=== PATIENT | female | born 1960 | race Caucasian/White ===

== ENCOUNTER 2017-12-15 19:23 | Emergency (ER) | payer OTHER ==
[~2017-12-15] VITALS: Ht 170.2 cm; Wt 125.0 kg
[~2017-12-15 19:23] MED LIST: ASPIRIN EC325 MG PO; ASPIRIN81 M2 PO; ATIVAN1 MG PO; DAILY MULTIPLE1 EACH PO; DILAUDID2 MG PO; FLONASE16 G1 BOTH NARES; KEFLEX500 MG PO; LASIX; MACROBID100 MG PO; MUCUS ER600 MG PO; PERCOCET 5/31 TABLET PO; PREDNISONE20 MG PO; PRILOSEC OTC20 MG PO; PROVENTIL,2.5 MG/3 M IH; TESSALON PERLE100 MG PO; TRAMADOL HCL50 MG PO; ULTRACET1 TABLET PO; ZANTAC150 MG PO; ZANTAC75 M1 PO; ZITHROMAX Z-PA250 MG PO; ZOFRAN ODT4 MG PO
[2017-12-15] MEDS ORDERED: VENTOLIN HFA18 GM IH (22:12)
[2017-12-15] MEDS ORDERED: PREDNISONE50 MG PO (22:12)
[2017-12-15 22:19] VITALS: BP 152/91
== END 2017-12-15 22:21 | disposition home or self-care (01) ==
LOC: EME 19:23
DX: J45.901 Unspecified asthma with (acute) exacerbation (principal); K21.9 Gastro-esophageal reflux disease without esophagitis; M79.7 Fibromyalgia; Z85.528 Personal history of other malignant neoplasm of kidney; Z88.2 Allergy status to sulfonamides; Z88.6 Allergy status to analgesic agent; Z88.0 Allergy status to penicillin; Z91.041 Radiographic dye allergy status
CPT/HCPCS: 94640; 99281; 99284; J7512

== ENCOUNTER 2018-02-03 23:29 | Emergency (ER) | payer OTHER ==
[~2018-02-03] VITALS: Ht 170.2 cm; Wt 127.1 kg
[~2018-02-03 23:29] MED LIST changes: +PREDNISONE50 MG PO; +VENTOLIN HFA18 GM IH
[2018-02-04 00:22] LABS: HEMATOCRIT 42.7 % (36.0-46.0); MCH 30.7 PG (29.0-34.0); MCHC 32.8 G/DL (30.0-36.0); MCV 93.6 FL (83-99); PLATELET COUNT 240 K/uL (156-360); RBC DIS.WIDTH-CV 13.2 % (11.8-14.6); RBC DIS.WIDTH-SD 45.2 % (39-53); RED BLOOD COUNT 4.56 M/uL (3.80-5.20); WHITE BLOOD COUNT 11.1 K/uL (4.1-10.2)
[2018-02-04 00:31] LABS: APPEARANCE SL.HAZY ((CLEAR)); BILIRUBIN NEGATIVE; BLOOD MODERATE; COLOR YELLOW ((YELLOW)); GLUCOSE (STRIP) NEGATIVE; KETONES NEGATIVE; LEUKOCYTES LARGE; NITRITE NEGATIVE; PROTEIN (STRIP) NEGATIVE; SPECIFIC GRAVITY 1.017 (1.000-1.030); UROBILINOGEN 0.2 MG/DL (0.2-1.0)
[2018-02-04 00:34] LABS: ALBUMIN 4.5 g/dL (3.2-4.8); CHLORIDE 109 mEq/L (99-109); POTASSIUM 4.7 mEq/L (3.7-5.4); SODIUM 143 mEq/L (136-147)
[2018-02-04 00:37] LABS: GLUCOSE 100 mg/dL (70-99); TOTAL PROTEIN 7.8 g/dL (6.4-8.3)
[2018-02-04 00:54] LABS: BACTERIA RARE /HPF; EPITHELIAL CELLS RARE /HPF; MUCUS TRACE /LPF; RED BLOOD CELLS 40-50 /HPF (0-5); UCUL ADDED? YES; WHITE BLOOD CELLS TNTC /HPF (0-5)
[2018-02-04 01:08] LABS: TOTAL BILIRUBIN 0.3 mg/dL (0.0-1.0)
[2018-02-04 01:09] LABS: ALKALINE PHOSPHATASE 95 IU/L (3-129)
[2018-02-04 01:10] LABS: CREATININE 0.8 mg/dL (0.6-1.3); GFR ESTIMATE (CALCULATED) > 59 mL/min/
[2018-02-04 01:11] LABS: UREA NITROGEN (BUN) 17 mg/dL (9-23)
[2018-02-04 01:12] LABS: AST (GOT) 14 IU/L (2-34)
[2018-02-04 01:13] LABS: ALT (GPT) 19 IU/L (3-49)
[2018-02-04] MEDS ORDERED: DILAUDID2 MG PO (02:17)
[2018-02-04] MEDS ORDERED: ZOFRAN4 MG PO (02:17)
[2018-02-04 02:50] VITALS: BP 168/82
== END 2018-02-04 02:51 | disposition home or self-care (01) ==
LOC: EME 23:29
DX: N13.2 Hydronephrosis with renal and ureteral calculous obstruction (principal); Z90.49 Acquired absence of other specified parts of digestive tract; Z88.0 Allergy status to penicillin; Z88.1 Allergy status to other antibiotic agents; Z88.2 Allergy status to sulfonamides; Z87.442 Personal history of urinary calculi; Z85.528 Personal history of other malignant neoplasm of kidney
CPT/HCPCS: 74176; 80053; 81003; 85027; 87077; 87086; 87186; 99281; 99284

== ENCOUNTER 2018-02-15 13:34 | Emergency (ER) | payer OTHER ==
[~2018-02-15] VITALS: Ht 170.2 cm; Wt 127.0 kg
[~2018-02-15 13:34] MED LIST changes: +ZOFRAN4 MG PO
[2018-02-15 14:48] LABS: HEMATOCRIT 39.2 % (36.0-46.0); HEMOGLOBIN 13.1 G/DL (11.9-15.5); MCH 30.8 PG (29.0-34.0); MCHC 33.4 G/DL (30.0-36.0); PLATELET COUNT 224 K/uL (156-360); RBC DIS.WIDTH-CV 13.1 % (11.8-14.6); RBC DIS.WIDTH-SD 44.2 % (39-53); RED BLOOD COUNT 4.26 M/uL (3.80-5.20); WHITE BLOOD COUNT 21.6 K/uL (4.1-10.2)
[2018-02-15 15:00] LABS: CHLORIDE 106 mEq/L (99-109); POTASSIUM 3.5 mEq/L (3.7-5.4); SODIUM 139 mEq/L (136-147)
[2018-02-15 15:02] LABS: GLUCOSE 114 mg/dL (70-99); TOTAL PROTEIN 7.2 g/dL (6.4-8.3)
[2018-02-15 15:04] LABS: TOTAL BILIRUBIN 1.1 mg/dL (0.0-1.0)
[2018-02-15 15:05] LABS: ALKALINE PHOSPHATASE 88 IU/L (3-129); CREATININE 1.4 mg/dL (0.6-1.3); GFR ESTIMATE (CALCULATED) 41 mL/min/
[2018-02-15 15:07] LABS: AST (GOT) 15 IU/L (2-34); UREA NITROGEN (BUN) 16 mg/dL (9-23)
[2018-02-15 15:08] LABS: ALT (GPT) 18 IU/L (3-49)
[2018-02-15 15:17] LABS: APPEARANCE SL.HAZY ((CLEAR)); BILIRUBIN NEGATIVE; BLOOD MODERATE; COLOR YELLOW ((YELLOW)); GLUCOSE (STRIP) NEGATIVE; KETONES 5; LEUKOCYTES LARGE; NITRITE NEGATIVE; PROTEIN (STRIP) NEGATIVE; SPECIFIC GRAVITY 1.012 (1.000-1.030); UROBILINOGEN 0.2 MG/DL (0.2-1.0)
[2018-02-15 15:21] LABS: BACTERIA RARE /HPF; EPITHELIAL CELLS 2+ /HPF; MUCUS TRACE /LPF; UCUL ADDED? YES; WHITE BLOOD CELLS TNTC /HPF (0-5)
[2018-02-15 16:51] VITALS: BP 134/81
== END 2018-02-15 16:55 | disposition home or self-care (01) ==
LOC: EME 13:34
PROVIDERS: Nurse Practitioner Family
DX: N13.2 Hydronephrosis with renal and ureteral calculous obstruction (principal); N39.0 Urinary tract infection, site not specified; Z85.528 Personal history of other malignant neoplasm of kidney; Z87.442 Personal history of urinary calculi; J45.909 Unspecified asthma, uncomplicated; M79.7 Fibromyalgia; K21.9 Gastro-esophageal reflux disease without esophagitis; R53.82 Chronic fatigue, unspecified; Z90.49 Acquired absence of other specified parts of digestive tract; Z88.6 Allergy status to analgesic agent; Z88.2 Allergy status to sulfonamides
CPT/HCPCS: 74176; 80053; 81003; 83605; 85027; 87077; 87086; 87186; 99281; 99284; J0696; J7030